=== PATIENT | female | born 1965 | race Caucasian/White ===

== ENCOUNTER 2017-08-17 08:26 | Day surgery (SDC) | payer OTHER ==
[~2017-08-17] VITALS: Ht 152.4 cm; Wt 56.8 kg
[~2017-08-17 08:26] MED LIST: BUPR300T PO; CLOP75 PO; DEME50TA PO; ENAL10TA7 PO; HYDR10TA16 PO; LANTUSP SQ; SIMV80TA PO
[2017-08-17 08:50] VITALS: BP 120/68; PULSE 68; RESP 18; TEMP 98.5; O2SAT 93
[2017-08-17] MEDS ORDERED: PLAV75TA29 PO (08:56)
[2017-08-17] MEDS ORDERED: SERT-129 PO (08:56)
[2017-08-17] MEDS ORDERED: BUPR300T PO (08:56)
[2017-08-17] MEDS ORDERED: ENAL10TA PO (08:56)
[2017-08-17] MEDS ORDERED: HYDR-3366 PO (08:56)
[2017-08-17] MEDS ORDERED: SITA1TAB2 PO (08:56)
[2017-08-17] MEDS ORDERED: LANTUS2P SQ (08:56)
[2017-08-17] MEDS ORDERED: SIMV80TA PO (08:56)
[2017-08-17 09:12] LABS: AUTOMATED NEUTROPHIL # 4.1 TH/MM3 (1.8-7.7); BASOPHIL % 0.4 % (0.0-2.0); EOSINOPHIL # 0.1 TH/MM3 (0-0.4); EOSINOPHIL % 1.7 % (0.0-4.0); HEMATOCRIT 40.2 % (35.0-46.0); HEMOGLOBIN 13.6 GM/DL (11.6-15.3); LYMPHOCYTE # 1.6 TH/MM3 (1.0-4.8); MEAN CELL VOLUME 94.1 FL (80.0-100.0); MEAN CORPUSCULAR HEMOGLOBIN 31.9 PG (27.0-34.0); MEAN CORPUSCULAR HGB CONC 33.9 % (32.0-36.0); MEAN PLATELET VOLUME 7.6 FL (7.0-11.0); MONO % 7.1 % (0.0-8.0); MONOCYTE # 0.4 TH/MM3 (0-0.9); NEUT % 65.8 % (16.0-70.0); PLATELET COUNT 231 TH/MM3 (150-450); RED BLOOD COUNT 4.27 MIL/MM3 (4.00-5.30); RED CELL DISTRIBUTION WIDTH 12.4 % (11.6-17.2); WHITE BLOOD COUNT 6.2 TH/MM3 (4.0-11.0)
[2017-08-17 09:20] LABS: PROTHROMBIN TIME - PATIENT 9.9 SEC (9.8-11.6)
[2017-08-17] MEDS ORDERED: CHLORHEXIDINE GLUCONATE 2 % 1 PACK (2 CLOTHS) TOPICAL SCH (09:45)
[2017-08-17] MEDS ORDERED: POVIDONE IODINE 5% (ANTISEPSIS KIT) 4 APPLICATIONS EACH NARE SCH (09:45)
[2017-08-17] MEDS ORDERED: VANCOMYCIN 1000 MG/NS 250 ML - implanted port/tunneled catheter IV SCH ×2 (09:45)
[2017-08-17] MEDS ORDERED: CEFAZOLIN INJ 2,000 MG in SODIUM CHLORIDE 0.9% INJ 100 ML IV SCH (09:45)
[2017-08-17] MEDS ORDERED: MIDAZOLAM HCL 2 MG/2 ML VIAL ONE ×2 (10:04→10:58)
[2017-08-17] MEDS ORDERED: LIDOCAINE 1%/EPINEPHrine 1:100,000 SOLN 30 ML VIAL ONE (10:06)
[2017-08-17 11:20] VITALS: BP 127/71; PULSE 78; RESP 16; TEMP 98.8; O2SAT 95
[2017-08-17 11:35] VITALS: BP 129/60; PULSE 63; RESP 18; O2SAT 99
--- NOTE | 2017-08-17 11:38 | PD.RAD ---
Post Procedure Progress Note Pre Procedure Diagnosis: (1) Breast cancer Post Procedure Diagnosis: (1) Breast cancer Procedure Date: Aug 17, 2017 Supervising Radiologist: Kristian Magaña Proceduralist/Assist: Natasha Grimaldo RT(R), RT Ryan(R) Anesthesia: Conscious Sedation Plan of Activity Patient to Unit: ROPU Patient Condition: Good See PACS Report for procedural detail/treatment Central Venous Access Device Procedure 1 Right Internal Jugular Infusaport Placement single lumen Kristian Magaña MD Aug 17, 2017 11:38
[2017-08-17] MEDS ORDERED: ACETAMINOPHEN/HYDROcodone 325 MG/5 MG TAB PO ONE (11:45)
[2017-08-17] MEDS ORDERED: SODIUM CHLORIDE 0.9% FLUSH 10 ML FLUSH IVF PRN (11:45)
[2017-08-17 12:05] VITALS: BP 114/66; PULSE 68; RESP 18; O2SAT 98
[2017-08-17 12:35] VITALS: BP 111/58; PULSE 73; RESP 18; O2SAT 98
--- NOTE | 2017-08-17 13:16 | RADRPT ---
EXAM DATE/TIME: 08/17/2017 10:16 [place] COMPARISON: No previous studies available for comparison. INDICATIONS : Patient presents with breast cancer in need of port placement. MEDICAL HISTORY : Sleep Apnea Stroke HTN Diabetic Anxiety Claustrophobic SURGICAL HISTORY : Laproscopy Endometriosis Ablation ENCOUNTER: Initial ACUITY: 3 months PAIN SCORE: 4/10 LOCATION: Back FLUORO TIME: 1.1 minutes IMAGE SERIES: 1 SEDATION TIME: 30 minutes ACCESS: Right internal jugular vein SEDATION: 1.) 4 midazolam (Versed) IV 2.) 200 fentanyl (Sublimaze) IV Prophylactic antibiotics were administered with appropriate pre-procedure timing. Vancomycin within 2 hours of procedure, Ancef (or alternative) within 1 hour of procedure. DEVICE: 1. 8 [place] single lumen [id number] PROCEDURE : 1. Continuous pulse oximetry and EKG monitoring. 2. Intravenous conscious sedation. 3. Ultrasound guidance for venous access. 4. Fluoroscopic guided implantable central venous port placement. The patient was placed supine. The neck was prepped in sterile fashion. Full sterile technique was u sed, including cap, mask, sterile gloves and gown, and a large sterile sheet. Hand hygiene and 2% ch lorhexidine Betadine was utilized per protocol for cutaneous antisepsis with appropriate dry time for site. Sterile gel and sterile probe cover were utilized for ultrasound guidance. The skin and sub cutaneous tissues were infiltrated with local anesthetic solution. Under direct ultrasound guidance, central venous access was accomplished in the targeted vessel. The ultrasound images depicting access guidance were stored and saved to PACS for permanent record. A s ubcutaneous pocket was created using blunt dissection. The port was introduced to the pocket. The c atheter tubing was fed through a subcutaneous tunnel to the venotomy site. The catheter tubing was c ut to a suitable length and then was introduced through a valved Peel-Away sheath and positioned with catheter tubing tip at the cavo-atrial junction level. The pocket incision was closed with subcutic ular Vicryl suture. Steri-Strips were applied. The port was flushed and locked with heparin solutio n per protocol. Sterile dressing was applied to the site. The patient tolerated the procedure well. Conscious sedation was performed with the prescribed dosages and duration as above in the presence of an independent trained radiology nurse to assist in the monitoring of the patient. EKG and oximetry remained stable throughout the procedure. The patient tolerated the procedure well and there were no complications. The patient was sent to post anesthesia recovery in stable condition. CONCLUSION: Uncomplicated ultrasound and fluoroscopic guided implanted central venous port catheter placement as described in detail above. An 8 [place] Power port was placed. Kristian Magaña MD on August 17, 2017 at 13:14 Board Certified Radiologist. This report was verified electronically.
== END 2017-08-17 13:38 | disposition home or self-care (01) ==
LOC: HROP 08:26 → HRIP 08:28 → HROP 13:38
PROVIDERS: ATTEND Internal Medicine
DX: Z45.2 Encounter for adjustment and management of vascular access device (principal); C50.911 Malignant neoplasm of unspecified site of right female breast; E11.9 Type 2 diabetes mellitus without complications; I10 Essential (primary) hypertension; F41.9 Anxiety disorder, unspecified; Z86.73 Personal history of transient ischemic attack (TIA), and cerebral infarction without residual deficits; Z79.4 Long term (current) use of insulin; Z79.02 Long term (current) use of antithrombotics/antiplatelets
CPT/HCPCS: 36561; 76937; 77001; 85025; 85610; 85730; 99152; 99153; C1788; J0690; J1642; J2250; J3010; J3370; J7050